=== PATIENT | female | born 1990 | race Caucasian/White ===

== ENCOUNTER 2021-11-30 05:56 | Inpatient (IN) | payer BC ==
[~2021-11-30] VITALS: Ht 152.4 cm; Wt 65.3 kg
[~2021-11-30 05:56] MED LIST: COLACE100 MG PO
[2021-11-30 06:30] LABS: RED BLOOD COUNT 4.13 M/UL (4.00-5.10); WHITE BLOOD COUNT 7.3 K/UL (4.5-11.0)
[2021-11-30] MEDS ORDERED: PRENATABS FA T1 EACH PO (06:46)
[2021-11-30] MEDS ORDERED: HYDROCODON-ACE1 EAC4 PO (11:45)
[2021-11-30] MEDS ORDERED: COLACE 100MG C100 MG PO (11:45)
[2021-11-30] MEDS ORDERED: IBUPROFEN800 MG PO (11:45)
[2021-11-30] MEDS ORDERED: HYDROCODON-ACE1 EAC2 PO (11:46)
[2021-12-01 04:53] LABS: HEMOGLOBIN 10.4 gm/dl (12.3-15.3)
== END 2021-12-03 12:21 | disposition home or self-care (01) | DRG 788 ==
LOC: OB 05:56
PROVIDERS: ADMIT Obstetrics & Gynecology
PROC: 4A1HXCZ Monitoring of Products of Conception, Cardiac Rate, External Approach (ICD-10-PCS; 2021-11-30)
PROC: 10D00Z1 Extraction of Products of Conception, Low, Open Approach (ICD-10-PCS; principal; 2021-11-30 07:30)
DX: O34.211 Maternal care for low transverse scar from previous cesarean delivery (principal); Z3A.37 37 weeks gestation of pregnancy; O36.5930 Maternal care for other known or suspected poor fetal growth, third trimester, not applicable or unspecified; Z37.0 Single live birth; Z20.822 Contact with and (suspected) exposure to COVID-19; Z88.8 Allergy status to other drugs, medicaments and biological substances; Z83.3 Family history of diabetes mellitus; Z82.49 Family history of ischemic heart disease and other diseases of the circulatory system; Z80.9 Family history of malignant neoplasm, unspecified
CPT/HCPCS: 36415; 81001; 82800; 85014; 85018; 85025; 86900; 86901; 94760; C9113; J0690; J1885; J2274; J2300; J2370; J2405; J2590; J3010; J7120